=== PATIENT | female | born 1960 | race Caucasian/White ===

== ENCOUNTER 2024-04-01 19:06 | Emergency (ER) | payer SELFPAY ==
[2024-04-01] MEDS ORDERED: Ketorolac Tromethamine 30 MG (1 mL) VIAL ONE (20:22)
[2024-04-01] MEDS ORDERED: Dexamethasone 10 MG/ML VIAL ONE (20:22)
[2024-04-01] MEDS ORDERED: Cyclobenzaprine 10 MG TAB ONE (20:23)
== END 2024-04-01 21:30 | disposition home or self-care (01) ==
LOC: CSHERS 19:06
DX: M54.50 Low back pain, unspecified (principal); E11.9 Type 2 diabetes mellitus without complications; I10 Essential (primary) hypertension; Z87.891 Personal history of nicotine dependence; Z79.899 Other long term (current) drug therapy
CPT/HCPCS: 72131; 96372; J1100; J1885

== ENCOUNTER 2024-12-15 07:43 | Outpatient (CLI) | payer MEDICAID | END 2024-12-15 07:44 | disposition home or self-care (01) | LOC: CSHULT 07:43 | PROVIDERS: ATTEND Family Medicine | DX: I77.810 Thoracic aortic ectasia (principal) | CPT/HCPCS: 76775 ==

== ENCOUNTER 2025-01-17 17:48 | Observation (INO) | payer MEDICAID ==
[~2025-01-17 17:48] MED LIST: Iopamidol 370 76% 100 ML VIAL ONE
[2025-01-17] MEDS ORDERED: Metoclopramide HCl 10 MG (2 mL) VIAL ONE (18:31)
[2025-01-17 19:34] LABS: Glucose, Urine (Dipstick) Normal (Negative); Leukocyte 25 (Negative); Protein, Urine (Dipstick) 30 mg/dl (Neg-Trace); Specific Gravity, Urine 1.025 (1.005-1.030)
[2025-01-17 19:42] LABS: Bacteria/HPF Rare-Few HPF (None Seen); CAUTI Indications for Culture Pelvic or flank pain; RBC/HPF 0-3 HPF (0-3); WBC/HPF 0-3 HPF (0-3)
[2025-01-17 19:43] LABS: Urine Culture Reflex No No
[2025-01-17 20:11] LABS: #Basophils 0.03 10x3/uL (0.0-0.2); #Eosinophils 0.08 10x3/uL (0.0-0.5); #Monocytes 0.48 10x3/uL (0.0-1.1); #Neutrophils 15.41 10x3/uL (1.5-8.4); %Basophils 0.2 % (0.0-2.0); %Eosinophils 0.5 % (0.0-6.0); %Lymphocytes 3.9 % (18.0-47.0); %Monocytes 2.9 % (0.0-10.0); %Neutrophils 92.1 % (40.0-75.0); Hematocrit 46.4 % (34.9-44.5); Hemoglobin 14.7 g/dL (12.0-15.5); Mean Corpuscular Hemoglobin 28.0 pg (27.0-33.0); Mean Corpuscular Volume 88.4 fL (81.6-98.3); Platelet Count 311 10x3/uL (150-450); Red Blood Cell (RBC) Count 5.25 10x6/uL (3.90-5.03); White Blood Cell (WBC) Count 16.71 10x3/uL (3.5-10.5)
[2025-01-17 20:27] LABS: ALT (SGPT) 32 U/L (Less than 34); AST (SGOT) 25 U/L (11-34); Albumin 3.9 g/dL (3.1-4.5); Alkaline Phosphatase 99 U/L (40-110); Anion Gap 13 mmol/L (10-20); BUN (Urea Nitrogen) 16 mg/dL (9.8-20.1); Bilirubin, Total 0.4 mg/dL (0.3-1.2); Calc. Creatinine Clearance 0 mL/min (70-130); Calcium 8.8 mg/dL (7.8-10.44); Carbon Dioxide 24 mmol/L (23-31); Chloride 106 mmol/L (98-107); Globulin 2.8 g/dL (2.4-3.5); Glucose 129 mg/dL (80-115); Lipase 135 U/L (8-78); Magnesium 1.4 mg/dL (1.6-2.6); Potassium 4.4 mmol/L (3.5-5.1); Sodium 139 mmol/L (136-145)
[2025-01-17 20:34] LABS: Troponin I Less than 0.010 ng/mL (< 0.028)
[2025-01-17] MEDS ORDERED: Magnesium 2 GM/50 ML BAG (IN WATER) ONE (20:54)
[2025-01-17] MEDS ORDERED: cefTRIAXone (ROCEPHIN) 2 GM VIAL ONE (22:03)
[2025-01-17] MEDS ORDERED: Pantoprazole 40 MG VIAL ONE (22:03)
[2025-01-17] MEDS ORDERED: metroNIDAZOLE 500 MG (100 mL) BAG ONE (22:03)
[2025-01-17] MEDS ORDERED: Famotidine/PF 20 mg/2ml Vial ONE (22:04)
[2025-01-18] MEDS ORDERED: Ondansetron PF 4 MG/2 ML Vial IVP PRN (00:50)
[2025-01-18] MEDS ORDERED: Ventolin HFA Inhaler 60 PUFF INHALER INH PRN (00:50)
[2025-01-18 01:09] VITALS: BMI 37.0
[2025-01-18] MEDS: Azithromycin 500 MG in Sodium Chloride 0.9% 250 ML 250 ML IVPB SCH (01:43)
[2025-01-18 06:14] LABS: Anion Gap 12 mmol/L (10-20); BUN (Urea Nitrogen) 13 mg/dL (9.8-20.1); Calc. Creatinine Clearance 129 mL/min (70-130); Calcium 7.7 mg/dL (7.8-10.44); Carbon Dioxide 22 mmol/L (23-31); Chloride 106 mmol/L (98-107); Glucose 148 mg/dL (80-115); Hematocrit 40.5 % (34.9-44.5); Hemoglobin 13.2 g/dL (12.0-15.5); Magnesium 1.8 mg/dL (1.6-2.6); Mean Corpuscular Hemoglobin 28.1 pg (27.0-33.0); Mean Corpuscular Volume 86.4 fL (81.6-98.3); Platelet Count 257 10x3/uL (150-450); Potassium 4.1 mmol/L (3.5-5.1); Red Blood Cell (RBC) Count 4.69 10x6/uL (3.90-5.03); Sodium 136 mmol/L (136-145); White Blood Cell (WBC) Count 8.12 10x3/uL (3.5-10.5)
[2025-01-18 06:15] LABS: MDiff Complete? YES; Platelet Adequacy Comment Appears Adequate; RBC Morphology Within Normal Limits
[2025-01-18] MEDS: Mometasone 200 MCG/Formoterol 5 MCG 60 PUFF INHALER INH SCH (07:10)
[2025-01-18] MEDS: Pantoprazole 40 MG DR.TAB PO SCH (08:49)
[2025-01-18] MEDS: Lisinopril 20 MG TAB PO SCH (08:49)
[2025-01-18] MEDS: Enoxaparin 40 MG (0.4 mL) SYRINGE SC SCH (08:51)
[2025-01-18] MEDS: Acetaminophen 325 MG TAB PO PRN (19:33)
[2025-01-18] MEDS: Lumateperone Tosylate [Caplyta] 42 MG Capsule PO SCH (20:13)
[2025-01-18] MEDS ORDERED: LUMATEPERONE TOSYLATE 42 MG PO SCH (21:00)
[2025-01-18] MEDS: cefTRIAXone\\ROCEPHIN 2 GM in Sodium Chloride 0.9% 100 ML IVPB SCH (21:32)
[2025-01-19 01:36] LABS: Campy jejuni + coli by PCR Negative (Negative); STEC Shiga Toxin 1+2 Negative (Negative); Salmonella spp. by PCR Negative (Negative); Shigella spp + EIEC by PCR Negative (Negative)
[2025-01-19 06:00] LABS: #Basophils Less than 0.03 10x3/uL (0.0-0.2); #Eosinophils 0.03 10x3/uL (0.0-0.5); #Monocytes 0.47 10x3/uL (0.0-1.1); #Neutrophils 3.16 10x3/uL (1.5-8.4); %Basophils 0.4 % (0.0-2.0); %Eosinophils 0.6 % (0.0-6.0); %Lymphocytes 25.4 % (18.0-47.0); %Monocytes 9.5 % (0.0-10.0); %Neutrophils 63.7 % (40.0-75.0); Hematocrit 38.5 % (34.9-44.5); Hemoglobin 12.2 g/dL (12.0-15.5); Mean Corpuscular Hemoglobin 28.0 pg (27.0-33.0); Mean Corpuscular Volume 88.3 fL (81.6-98.3); Platelet Count 238 10x3/uL (150-450); Red Blood Cell (RBC) Count 4.36 10x6/uL (3.90-5.03); White Blood Cell (WBC) Count 4.96 10x3/uL (3.5-10.5)
[2025-01-19 06:24] LABS: Anion Gap 10 mmol/L (10-20); BUN (Urea Nitrogen) 6 mg/dL (9.8-20.1); Calc. Creatinine Clearance 137 mL/min (70-130); Calcium 7.8 mg/dL (7.8-10.44); Carbon Dioxide 25 mmol/L (23-31); Chloride 110 mmol/L (98-107); Glucose 136 mg/dL (80-115); Magnesium 2.1 mg/dL (1.6-2.6); Potassium 3.8 mmol/L (3.5-5.1); Sodium 141 mmol/L (136-145)
[2025-01-19 12:40] VITALS: BP 133/79; TEMP 97.9
[2025-01-19] MEDS ORDERED: Preparation H Ointment 28 GM TUBE TOP PRN (12:41)
[2025-01-19] MEDS: Witch Hazel 100 PAD JAR TOP PRN (13:12)
== END 2025-01-19 14:53 | disposition home or self-care (01) ==
LOC: CSHERS 17:48 → CSHTELE 21:27
PROVIDERS: ADMIT Family Medicine; ATTEND Family Medicine
DX: K52.9 Noninfective gastroenteritis and colitis, unspecified (principal); I10 Essential (primary) hypertension; E11.9 Type 2 diabetes mellitus without complications; E78.5 Hyperlipidemia, unspecified; E83.42 Hypomagnesemia; C85.9A Non-Hodgkin lymphoma, unspecified, in remission; J44.9 Chronic obstructive pulmonary disease, unspecified; Z98.51 Tubal ligation status; Z87.891 Personal history of nicotine dependence; Z90.89 Acquired absence of other organs; Z79.51 Long term (current) use of inhaled steroids; Z79.84 Long term (current) use of oral hypoglycemic drugs; Z79.899 Other long term (current) drug therapy
CPT/HCPCS: 36415; 36416; 74177; 80048; 80053; 81001; 83605; 83630; 83690; 83735; 84484; 85025; 87040; 87324; 87449; 87505; 93005; 96360; 96361; 96365; 96366; 96367; 96368; 96375; J0456; J0696; J1630; J1650; J2270; J2470; J2765; J3475; J7030; J7050; Q9967

== ENCOUNTER 2025-01-23 18:28 | Emergency (ER) | payer MEDICAID ==
[2025-01-23 19:15] LABS: Glucose, Urine (Dipstick) Normal (Negative); Leukocyte Negative (Negative); Protein, Urine (Dipstick) Negative (Neg-Trace); Specific Gravity, Urine 1.010 (1.005-1.030)
[2025-01-23] MEDS ORDERED: Famotidine 20 MG TAB ONE (19:25)
[2025-01-23 19:31] LABS: Bacteria/HPF Rare-Few HPF (None Seen); CAUTI Indications for Culture Pelvic or flank pain; RBC/HPF None Seen HPF (0-3); Urine Culture Reflex No No; WBC/HPF 0-3 HPF (0-3)
[2025-01-23] MEDS ORDERED: Sodium Chloride 3% (15 ML) NEB ONE (19:32)
[2025-01-23] MEDS ORDERED: Albuterol 2.5 MG (0.5 mL) NEB ONE (19:32)
[2025-01-23 21:17] LABS: #Basophils 0.04 10x3/uL (0.0-0.2); #Eosinophils 0.17 10x3/uL (0.0-0.5); #Monocytes 0.69 10x3/uL (0.0-1.1); #Neutrophils 5.33 10x3/uL (1.5-8.4); %Basophils 0.4 % (0.0-2.0); %Eosinophils 1.8 % (0.0-6.0); %Lymphocytes 32.2 % (18.0-47.0); %Monocytes 7.4 % (0.0-10.0); %Neutrophils 56.8 % (40.0-75.0); Hematocrit 34.0 % (34.9-44.5); Hemoglobin 11.1 g/dL (12.0-15.5); Mean Corpuscular Hemoglobin 28.0 pg (27.0-33.0); Mean Corpuscular Volume 85.6 fL (81.6-98.3); Platelet Count 302 10x3/uL (150-450); Red Blood Cell (RBC) Count 3.97 10x6/uL (3.90-5.03); White Blood Cell (WBC) Count 9.38 10x3/uL (3.5-10.5)
[2025-01-23 21:34] LABS: ALT (SGPT) 123 U/L (Less than 34); AST (SGOT) 87 U/L (11-34); Albumin 3.5 g/dL (3.1-4.5); Alkaline Phosphatase 84 U/L (40-110); Anion Gap 14 mmol/L (10-20); BUN (Urea Nitrogen) 10 mg/dL (9.8-20.1); Bilirubin, Total 0.3 mg/dL (0.3-1.2); Calc. Creatinine Clearance 0 mL/min (70-130); Calcium 8.7 mg/dL (7.8-10.44); Carbon Dioxide 23 mmol/L (23-31); Chloride 105 mmol/L (98-107); Globulin 2.4 g/dL (2.4-3.5); Glucose 196 mg/dL (80-115); Potassium 3.6 mmol/L (3.5-5.1); Sodium 138 mmol/L (136-145)
[2025-01-23 21:35] LABS: Troponin I Less than 0.010 ng/mL (< 0.028)
[2025-01-23 22:20] LABS: ALV-art Gradient 34.230 mmHg (0-20); Actual Bicarbonate (HCO3a) 24.2 mEq/L (22-28); Analyzer IN Cardio CS ICU; Base Excess (BEa) 0.6 mEq/L (-2.0 to +3.0); CO2 Tension 35.2 mmHg (35.0-45.0); Calcium, Ionized (arterial) 1.16 mmol/L (1.12-1.30); Critical Notified By: CP.SDG; Hematocrit-ABG 35 % (36.0-47.0); Hemoglobin (Hb) 12.0 g/dL (12.0-16.0); O2 Tension (PaO2), arterial 71.5 mmHg (> 80.0); Potassium - ABG Lab 3.34 mmol/L (3.70-5.30); Puncture Site Left Brachial artery; RapidComm Collect By CP.SDG; pH, Arterial 7.455 (7.35-7.45)
== END 2025-01-23 23:11 | disposition home or self-care (01) ==
LOC: CSHERS 18:28
DX: J20.9 Acute bronchitis, unspecified (principal); I10 Essential (primary) hypertension; J44.9 Chronic obstructive pulmonary disease, unspecified; E11.9 Type 2 diabetes mellitus without complications; Z87.891 Personal history of nicotine dependence
CPT/HCPCS: 36415; 36600; 71045; 71250; 80053; 81001; 82805; 83880; 84484; 85025; 87428; 93005; 94640; 96374; J2919; J7611